=== PATIENT | female | born 1980 | race Caucasian/White ===

== ENCOUNTER → 2021-03-05 | Outpatient (CLI) | payer BC ==
--- NOTE | 2021-03-05 11:34 | REP ---
INDICATION: MENISCUS TEAR RT KNEE. COMPARISON: None. TECHNIQUE: Sagittal spin-echo proton density, T2 STIR and T2 FLASH. Coronal spin-echo proton density and fat suppressed proton density. Axial fat suppressed proton density. FINDINGS: There is complex grade 3 signal change seen within a truncated posterior horn of the medial meniscus. There is a triangular-shaped low signal structure seen adjacent to the anterior horn. The anterior and posterior horns of the lateral meniscus are within normal limits. The anterior cruciate ligament is indistinct. T2 hyper signal is seen within and surrounding it. There appear to be some abnormally horizontally oriented fibers. The posterior cruciate ligament is intact. The quadriceps and patellar tendons are intact. The medial and lateral collateral ligaments are intact. There is a subtle degree of T2 hyper signal seen superficial to the medial collateral ligament. The medial and lateral patellar retinacula are intact. There is a joint effusion and thickened parapatellar plica. There is no Dumont's cyst. The marrow signal is within normal limits. The articular cartilages are within normal limits. IMPRESSION: 1. There is a bucket-handle tear of the medial meniscus. 2. The anterior cruciate ligament is torn. 3. The medial collateral ligament is sprained. 4. Joint effusion with thick parapatellar plica. 5. Other findings as described above. <Electronically signed by Fernando Lewis > 03/05/21 [id number]
== END ==
LOC: M PLARAD 09:39
PROVIDERS: ATTEND Orthopaedic Surgery Sports Medicine
DX: S83.211A Bucket-handle tear of medial meniscus, current injury, right knee, initial encounter (principal); S83.511A Sprain of anterior cruciate ligament of right knee, initial encounter; S83.411A Sprain of medial collateral ligament of right knee, initial encounter; M25.461 Effusion, right knee; M23.303 Other meniscus derangements, unspecified medial meniscus, right knee; X58.XXXA Exposure to other specified factors, initial encounter; Y92.9 Unspecified place or not applicable; Y99.9 Unspecified external cause status